=== PATIENT | female | born 1945 | race Caucasian/White ===

== ENCOUNTER 2018-06-21 11:31 | Emergency (ER) | payer MEDICARE ==
--- NOTE | 2018-06-21 11:48 | ED ---
Upper Extremity Pain - HPI Summary HPI Summary: This patient is a 72 year old F BIBA to [facility] with a chief complaint of LUE pain status that began status post fall down stairs. Patient denies hitting her head. Pt denies LOC. The patient rates the pain 8/10 in severity. Symptoms aggravated by movement. Symptoms alleviated by nothing. Patient denies CP, SOB, dizziness, and neck pain. - History of Current Complaint Stated Complaint: LT ARM PAIN Hx Obtained From: Patient Mechanism Of Injury: Penetrating Trauma, Fall From A Standing Position Onset/Duration: Started Hours Ago, Traumatic, Still Present Timing: Constant Severity Initially: Severe Severity Currently: Severe Pain Location: Arm Aggravating Factor(s): Movement Alleviating Factor(s): Nothing Associated Signs & Symptoms: Positive: Other - Negative dizziness and neck pain. Negative: Chest Pain, SOB - Allergies/Home Medications Allergies/Adverse Reactions: Allergies Allergy/AdvReac Type Severity Reaction Status Date / Time aspirin Allergy Swelling Verified 06/21/18 11:47 Penicillins Allergy Nausea Verified 06/21/18 11:47 Home Medications: Home Medications BuPROPion XL* [Bupropion XL*] 300 mg PO DAILY 06/21/18 [History Confirmed ] Carvedilol TAB* [Coreg TAB*] 6.25 mg PO BID 06/21/18 [History Confirmed 06/21/18 ] Furosemide TAB* [Lasix TAB*] 20 mg PO DAILY 06/21/18 [History Confirmed 06/21/18 ] Levothyroxine TAB* [Synthroid 88 MCG TAB*] 88 mcg PO DAILY 06/21/18 [History Confirmed 06/21/18] Lisinopril TAB* [Prinivil TAB 10 MG*] 40 mg PO DAILY 06/21/18 [History Confirmed 06/21/18] amLODIPine TAB* [Norvasc 5 mg TAB*] 5 mg PO DAILY 06/21/18 [History Confirmed ] PMH/Surg Hx/FS Hx/Imm Hx Previously Healthy: No Opthamlomology History: Denies: Hx Legally Blind EENT History: Denies: Hx Deafness Neurological History: Reports: Hx CVA - Family History Known Family History: Negative: Cardiac Disease, Diabetes - Social History Occupation: Employed Full-time Lives: With Family Alcohol Use: Occasionally Hx Substance Use: No Substance Use Type: Reports: None Hx Tobacco Use: No Smoking Status (MU): Never Smoked Tobacco Review of Systems Negative: Chest Pain Negative: Shortness Of Breath Positive: Other - Positive LUE pain. Negative neck pain Neurological: Other - Negative dizziness All Other Systems Reviewed And Are Negative: Yes Physical Exam - Summary Physical Exam Summary: VITAL SIGNS: Reviewed. GENERAL: Patient is a well-developed and nourished female who is lying comfortable in the stretcher. Patient is not in any acute respiratory distress. HEAD AND FACE: No signs of trauma. No ecchymosis, hematomas or skull depressions. No sinus tenderness. EYES: PERRLA, EOMI x 2, No injected conjunctiva, no nystagmus. EARS: Hearing grossly intact. Ear canals and tympanic membranes are within normal limits. MOUTH: Oropharynx within normal limits. NECK: Supple, trachea is midline, no adenopathy, no JVD, no carotid bruit, no c- spine tenderness, neck with full ROM. Palpated the C-spine, no tenderness in the C-spine. CHEST: Symmetric, no tenderness at palpation LUNGS: Clear to auscultation bilaterally. No wheezing or crackles. CVS: Regular rate and rhythm, S1 and S2 present, no murmurs or gallops appreciated. ABDOMEN: Soft, non-tender. No signs of distention. No rebound no guarding, and no masses palpated. Bowel sounds are normal. EXTREMITIES: FROM in all major joints, no edema, no cyanosis or clubbing. Deformity in L shoulder with decreased ROM. Good pulses and strength. Unable to see capillary refill due to nail lao. NEURO: Alert and oriented x 3. No acute neurological deficits. Speech is normal and follows commands. SKIN: Dry and warm Triage Information Reviewed: Yes Vital Signs Reviewed: Yes Diagnostics - Laboratory Result Diagrams: 06/21/18 13:08 06/21/18 13:08 Lab Statement: Any lab studies that have been ordered have been reviewed, and results considered in the medical decision making process. - Radiology L Shoulder XR Radiology Interpretation Completed By: Radiologist - L shoulder XR reveals, per radiologist, fracture through the neck of the left humeral head. Impaction is noted. ED physician has reviewed this radiology report. R Ribs with CXR Radiology Interpretation Completed By: Radiologist - Right ribs with CXR reveals , per radiologist, likely fracture of the right 10th and 11th rib. No pneumothorax is noted. ED physician has reviewed this radiology report. Re-Evaluation - Re-Evaluation First Eval Re-Evaluation Time: 13:25 Change: Unchanged Comment: Discussed results and plan of care with patient. Patient is now complaining of right rib pain Second Eval Re-Evaluation Time: 15:15 Change: Unchanged Comment: Discussed results and plan of care with patient Course/Dx - Course Assessment/Plan: This patient is a 72 year old F BIBA to [facility] with a chief complaint of LUE pain status that began status post fall down stairs. Patient denies hitting her head. Pt denies LOC. The patient rates the pain 8/10 in severity. Symptoms aggravated by movement. Symptoms alleviated by nothing. Patient denies CP, SOB, dizziness, and neck pain. Test results shows a wbc's of 10.9, and glucose of 128. Left shoulder x-ray impression: Fracture through the neck of the left humeral head. Impaction is noted. RIBS and chest x-ray impression: Likely fracture of the right 10th an 11 blade. No pneumothorax is noted. In the ED course the patient was given morphine, Zofran for the pain. The patient also was given one [place]. At this time the patient was placed in a shoulder immobilizer, she will be given a prescription for [place] and she will be given an incentive spirometer. She will be discharged home with follow-up with PCP. I decided not to do a head CT or or neck CT since the patient did not have a contusion of the head or neck. She also had no loss of consciousness. After the medications the pain is under control. She will be discharged home with follow-up with Dr. White orthopedics. - Diagnoses Differential Diagnosis/HQI/PQRI: Positive: Arthritis, Bursitis, Contusion, Fracture (Closed), Strain, Sprain Provider Diagnoses: Rib fracture, Humeral head fracture, Shoulder fracture Discharge - Sign-Out/Discharge Documenting (check all that apply): Patient Departure - Discharge home - Discharge Plan Condition: Stable Disposition: HOME Prescriptions: Hydrocodone/Acetaminophen [[place] 5-325 Tablet] 1 each PO Q6H PRN #15 tablet MDD 4 PRN Reason: Pain Ondansetron TAB* [Zofran 4 MG Tab*] 4 mg PO Q6H PRN #10 tab PRN Reason: Nausea Patient Education Materials: Hydrocodone/Acetaminophen (By mouth), Ondansetron (By mouth), Arm Fracture in Adults (ED), Rib Fracture (ED) Referrals: [facility] [place] [facility] [place] [facility] [Outside] Additional Instructions: RETURN TO THE EMERGENCY DEPARTMENT FOR NEW OR WORSENING SYMPTOMS - Billing Disposition and Condition Condition: STABLE Disposition: Home - Attestation Statements Document Initiated by Scribe: Yes Documenting Scribe: Savannah Ferrer Provider For Whom Scribe is Documenting (Include Credential): Bharat Cheung MD Scribe Attestation: Savannah Mario, scribed for Bharat Cheung MD on 06/26/18 at 2140. Scribe Documentation Reviewed: Yes Provider Attestation: The documentation as recorded by the Savannah enciso accurately reflects the service I personally performed and the decisions made by Bharat gallegos MD
[2018-06-21] MEDS ORDERED: Ondansetron INJ* 2 MG/ML VIAL IV ONE (13:00)
[2018-06-21] MEDS ORDERED: Morphine INJ* 4 MG/ML 1 ML SYRINGE (NEW SYRINGE VERSION) IV ONE (13:00)
[2018-06-21 13:21] LABS: ABS Basophils 0.1 10^3/ul (0-0.2); ABS Eosinophils 0.1 10^3/ul (0-0.6); ABS Lymphocytes 0.9 10^3/ul (1.0-4.8); ABS Monocytes 0.4 10^3/ul (0-0.8); ABS Neutrophils 9.5 10^3/ul (1.5-7.7); ABS Nucleated RBC 0 10^3/ul; Eosinophil % 0.6 % (0-6); Hematocrit 42 % (35-47); Hemoglobin 14.4 g/dl (12.0-16.0); Lymphocyte % 8.2 % (25-47); Mean Corpuscular HGB Conc 35 g/dl (31-36); Mean Corpuscular Hemoglobin 31 pg (27-31); Mean Corpuscular Volume 90 fL (80-97); Mean Platelet Volume 7.5 um3 (7.4-10.4); Nucleated Red Blood Cells % 0.1; Platelet Count 281 10^3/ul (150-450); Red Blood Count 4.63 10^6/ul (4.00-5.40); Red Cell Distribution Width 14 % (10.5-15); White Blood Count 10.9 10^3/ul (3.5-10.8)
--- NOTE | 2018-06-21 13:22 | RAD ---
Indication: Shoulder and arm pain after fall. 4 views of left shoulder demonstrates fracture through the surgical neck of the humerus. No other bone or joint abnormality is noted. IMPRESSION: Fracture through the neck of the left humeral head. Impaction is noted.
[2018-06-21 13:35] LABS: INR 1.02 (0.77-1.02)
[2018-06-21 13:41] LABS: EGFR Non-African American 62.3 (>60)
--- NOTE | 2018-06-21 15:03 | RAD ---
Indication: Rib pain after fall. 3 views of the right ribs and dual energy PA view of the chest demonstrate no mediastinal shift. Heart is of normal size and configuration. Lung warner are clear. No pneumothorax is noted. In the right lower chest there is suggestion of a fracture of the right 10th and 11th rib laterally. IMPRESSION: Likely fracture of the right 10th and 11th rib. No pneumothorax is noted.
[2018-06-21] MEDS ORDERED: HYDROcodone/ACETAMIN 5-325 MG* 1 TAB PO ONE (15:05)
[2018-06-21 16:28] VITALS: BP 132/70
== END 2018-06-21 16:33 | disposition home or self-care (01) ==
LOC: ED 11:31
DX: S22.31XA Fracture of one rib, right side, initial encounter for closed fracture (principal); S42.292A Other displaced fracture of upper end of left humerus, initial encounter for closed fracture; W10.9XXA Fall (on) (from) unspecified stairs and steps, initial encounter; Y92.9 Unspecified place or not applicable; Z88.0 Allergy status to penicillin; Z88.6 Allergy status to analgesic agent; Z86.73 Personal history of transient ischemic attack (TIA), and cerebral infarction without residual deficits
CPT/HCPCS: 36415; 80053; 85025; 85610; 85730; 96374; 96375; 99283; J2270; J2405